=== PATIENT | male | born 1935 | race Caucasian/White ===

== ENCOUNTER → 2016-12-12 | Outpatient (CLI) | payer OTHER | LOC: BHFA 09:00 | PROVIDERS: ATTEND Internal Medicine Cardiovascular Disease | DX: I25.10 Atherosclerotic heart disease of native coronary artery without angina pectoris (principal); E78.5 Hyperlipidemia, unspecified | CPT/HCPCS: 78452; 93017; A9500 ==

== ENCOUNTER → 2017-10-22 | Outpatient (CLI) | payer OTHER | LOC: BHFA 10:00 | PROVIDERS: ATTEND Internal Medicine Cardiovascular Disease | DX: I35.9 Nonrheumatic aortic valve disorder, unspecified (principal); I25.10 Atherosclerotic heart disease of native coronary artery without angina pectoris; I10 Essential (primary) hypertension ==

== ENCOUNTER → 2018-09-17 | Outpatient (CLI) | payer OTHER | LOC: BHFA 10:15 | PROVIDERS: ATTEND Physician Assistant Medical | DX: I35.1 Nonrheumatic aortic (valve) insufficiency (principal); I25.10 Atherosclerotic heart disease of native coronary artery without angina pectoris; I10 Essential (primary) hypertension; E78.5 Hyperlipidemia, unspecified ==

== ENCOUNTER → 2018-10-07 | Outpatient (CLI) | payer OTHER | LOC: BHLMT 14:00 | PROVIDERS: ATTEND Internal Medicine Interventional Cardiology | DX: I35.1 Nonrheumatic aortic (valve) insufficiency (principal); I25.10 Atherosclerotic heart disease of native coronary artery without angina pectoris | CPT/HCPCS: 93306-PO ==

== ENCOUNTER 2019-02-12 13:29 | Inpatient (IN) | payer OTHER ==
[2019-02-12] MEDS ORDERED: HYDROCODONE/APAP 5/325 TAB PO ONE (15:19)
--- NOTE | 2019-02-12 16:06 | EDPHY ---
ED Progress Note Narrative: This patient was turned over to me at change of shift from Dr. Ro for left hip pain. Awaiting CT pelvis and left femur x-ray. 1600: Patient's left femur x-ray is unremarkable. 1615: I spoke with Dr. Frazier, radiologist, regarding patient's pelvic CT. The patient has a transverse fracture of the left superior/inferior rami. This fracture was not present on an old MRI. He will need to be admitted. I will also page the orthopedic surgeon. 1616: Reassessed patient and discussed imaging findings. I have also discussed plan for admission which he is comfortable with. 1619: I consulted with the hospitalist service, Dr. Villa accepts admission of this patient. 1628: I consulted with Dr. Willis, orthopedic surgeon. He agrees to consult on this patient during his admission.
[2019-02-12 17:15] LABS: PLATELET COUNT 228 10^3/uL (150-400)
--- NOTE | 2019-02-12 17:28 | EDPHY ---
H & P Time Seen by Provider: 02/12/19 13:35 HPI/ROS: CC: Fall, hip pain HPI: This is an 83-year-old male with history of prior left hip replacement who fell at a local dog park prior to arrival, primarily landing on his left hip and leg. He denies injury or pain to head, neck or chest. He had difficulty walking afterwards, complaining of pain in pelvis, so EMS was called who brought him to the hospital. He has been in his usual state of health. ROS: A comprehensive 10 point review of systems was reviewed and is normal. PMH: Left ISREAL. Not on anticoagulants. Social history: . Retired. PHYSICAL EXAM: General:Patient is alert, in no acute distress. ENT:Eyes are normal to inspection. ENT inspection normal. Neck: Normal inspection. Full range of motion. Respiratory:No respiratory distress. Breath sounds normal bilaterally. Cardiovascular: Regular rate and rhythm. Strong peripheral pulses. Normal cap refill. Abdomen:The abdomen is nontender to palpation. There are no peritoneal signs. There are normal bowel sounds. Back: Normal to inspection. No tenderness to palpation. Skin: Normal color. No rash. Warm and dry. Extremities: TTP is present over left hip. No obvious shortening or deformity. Neuro: Oriented x3. Normal motor function. Normal sensory function. Smoking Status: Never smoked Constitutional: Initial Vital Signs Heart Rate 84 02/12/19 13:32 Respiratory Rate 18 02/12/19 13:32 Blood Pressure 149/91 H 02/12/19 13:32 O2 Sat (%) 94 02/12/19 13:32 O2 Delivery Mode Room Air Allergies/Adverse Reactions: CHOCOLATE Allergy (Intermediate, Uncoded 10/18/10 08:47) RUNNY NOSE,WHEEZY Home Medications: Medication Instructions Recorded Herbals/Supplements -Info Only 1 ea PO DAILY 11/01/14 Latanoprost 1 drops EACHEYE HS 11/01/14 Omeprazole [Prilosec 20 mg] 20 mg PO BID 11/01/14 Tamsulosin HCl [Flomax 0.4 MG (*)] 0.4 mg PO DAILY@1800 11/01/14 Venlafaxine HCl [Venlafaxine HCl 150 mg PO HS 11/01/14 ER] traZODone [traZODONE 50MG (*)] 100 mg PO HS 11/01/14 Pravastatin Sodium 60 mg PO HS 02/12/19 MDM/Departure - MDM Imaging Results: Imaging Impressions Hip X-Ray 02/12/19 13:47 Impression: Nothing acute identified. Pelvis CT 02/12/19 14:59 Impression: 1. Probable nondisplaced fracture of the left superior pubic ramus/acetabulum, with an age-indeterminate, likely acute nondisplaced fracture of the left inferior pubic ramus. 2. Gas in the left sacrum, likely related to migration from adjacent degenerative change in the sacroiliac joint. 3. Additional findings as above. Findings discussed with Dr. Cristhian Vallejo on February 12, 2019 at 1614 hours. Knee X-Ray 02/12/19 15:00 Impression: Negative. Imaging: Discussed imaging studies w/ scallop binder Radiologist, I viewed and interpreted images myself Medications Given: Tamsulosin HCl (Flomax) 0.4 mg PO DAILY@1800 EMILE Stop: 08/11/19 17:59 Last Admin: 02/12/19 18:24 Dose: 0.4 mg Discontinued Medications Hydrocodone Bitart/Acetaminophen ([place] 5/325) 2 tab PO EDNOW ONE Stop: 02/12/19 15:20 Last Admin: 02/12/19 15:22 Dose: 2 tab Differential Diagnosis: Patient signed out to Dr. Vallejo at 1500 - please see his Progress Note of same date for additional documentation. - Depart Disposition: [facility] Inpatient Acute Clinical Impression: Fracture of pelvis Condition: Fair
[2019-02-12] MEDS ORDERED: HYDROmorphONE/DILAUDID 1 MG/ML INJ IVP PRN (17:36)
[2019-02-12] MEDS ORDERED: ONDANSETRON 4 MG/2 ML VIAL IVP PRN (17:36)
[2019-02-12] MEDS ORDERED: ONDANSETRON DISINTEGRATING 4 MG TAB PO PRN (17:36)
[2019-02-12 17:41] LABS: INR 1.09 (0.83-1.16); PROTIME(PATIENT) 13.7 SEC (12.0-15.0)
--- NOTE | 2019-02-12 17:47 | PDGENHP ---
History and Physical - Chief Complaint L Hip pain - History of Present Illness 83 y/o male w/ hx of HTN, CAD s/p stent placed to diagonal vessel, Carlin's esophagus s/p GERD, and depression presents w/ left hip pain, difficulty bearing weight to LLE after an acute mechanical fall today. He was standing at the dog park when a dog bumped into him from the back and knocked him over, landing on his left hip. He was concerned about his hardware since he had a left hip replaced in March 2018. Denies hitting head, no LOC. Imaging reveal traverse fracture of the left superior/inferior rami which was not present on an old MRI. He denies CP, nausea, palpitations, fever, chills, diarrhea or constipation. He is being admitted for treatment and monitoring. History Information - Allergies/Home Medication List Allergies/Adverse Reactions: CHOCOLATE Allergy (Intermediate, Uncoded 10/18/10 08:47) RUNNY NOSE,WHEEZY Home Medications: Herbals/Supplements -Info Only 1 ea PO DAILY 11/01/14 [Last Taken 02/11/19] Latanoprost 1 drops EACHEYE HS 11/01/14 [Last Taken 02/11/19] Omeprazole [Prilosec 20 mg] 20 mg PO BID 11/01/14 [Last Taken 02/12/19] Tamsulosin HCl [Flomax 0.4 MG (*)] 0.4 mg PO DAILY@1800 11/01/14 [Last Taken ] Venlafaxine HCl [Venlafaxine HCl ER] 150 mg PO HS 11/01/14 [Last Taken 02/11/19] traZODone [traZODONE 50MG (*)] 100 mg PO HS 11/01/14 [Last Taken 02/11/19] Pravastatin Sodium 60 mg PO HS 02/12/19 [Last Taken 02/11/19] I have personally reviewed and updated: family history, medical history, social history, surgical history - Past Medical History coronary artery disease (PCI to diagonal vessel in 2009, 3cm LAD muscle bridge, paroxysmal atrial tachycardia, paroxysmal atrial flutter, RBBB), GERD, hypertension, hyperlipidemia Additional medical history: Depression. Carlin's esophagus with GERD. BPH. Insomnia - Surgical History Additional surgical history: Left shoulder surgery. Hernia repair x4. Cataract repair. Left hip replacement (March 2018) - Family History Positive for: father with history of CAD younger than 55 ( at 49) Additional family history: M: cervical ca - Social History Smoking Status: Never smoked Alcohol Use: Rarely Drug Use: None Additional social history: Retired, single. Lives independently in [place]. Enjoys reading, blogging, taking walks w/his border collie, Johanne. Review of Systems Review of Systems: ROS: 10pt was reviewed & negative except for what was stated in HPI & below Physical Exam Physical Exam: Lab data and imaging were reviewed. Temp Pulse Resp BP Pulse Ox 36.9 C 67 18 174/105 H 94 02/12/19 17:16 02/12/19 17:16 02/12/19 17:16 02/12/19 17:16 02/12/19 17:16 Constitutional: uncomfortable (Pleasant, cooperative, uncomfortable w/mvt) Eyes: PERRL, anicteric sclera, EOMI Ears, Nose, Mouth, Throat: moist mucous membranes, hearing normal, ears appear normal, no oral mucosal ulcers Cardiovascular: regular rate and rhythym, no murmur, rub, or gallop, No edema Peripheral Pulses: 2+: dorsalis-pedis (R) (Radial 2+), dorsalis-pedis (L) ( Radial 2+) Respiratory: no respiratory distress, no rales or rhonchi, clear to auscultation Gastrointestinal: normoactive bowel sounds, soft, non-tender abdomen, no palpable masses Genitourinary: no bladder fullness, no bladder tenderness Skin: warm, normal color, no rashes or abrasions, no fluctuance, no induration, No mottled Musculoskeletal: pain with ROM (LLE, pain expressed on lateral side and groin w/ mvt. +DF/PF, able to wiggle toes. Reports numb sensation from mid-thigh down to knee from previous hip sx in 2018.) Neurologic: AAOx3, sensation intact bilaterally, CN II-XII Intact Psychiatric: interacting appropriately, not anxious, not encephalopathic, thought process linear Lymph, Heme, Immunologic: no cervical LAD, no supraclavicular LAD Lab Data & Imaging Review 02/12/19 13:40 02/12/19 13:40 WBC 6.68 10^3/uL (3.80-9.50) 02/12/19 13:40 RBC 4.71 10^6/uL (4.40-6.38) 02/12/19 13:40 Hgb 13.7 g/dL (13.7-17.5) 02/12/19 13:40 Hct 41.1 % (40.0-51.0) 02/12/19 13:40 MCV 87.3 fL (81.5-99.8) 02/12/19 13:40 MCH 29.1 pg (27.9-34.1) 02/12/19 13:40 MCHC 33.3 g/dL (32.4-36.7) 02/12/19 13:40 RDW 15.3 % (11.5-15.2) H 02/12/19 13:40 Plt Count 228 10^3/uL (150-400) 02/12/19 13:40 MPV 12.2 fL (8.7-11.7) H 02/12/19 13:40 Neut % (Auto) 52.5 % (39.3-74.2) 02/12/19 13:40 Lymph % (Auto) 34.1 % (15.0-45.0) 02/12/19 13:40 Angelina % (Auto) 10.6 % (4.5-13.0) 02/12/19 13:40 Eos % (Auto) 2.2 % (0.6-7.6) 02/12/19 13:40 Baso % (Auto) 0.3 % (0.3-1.7) 02/12/19 13:40 Nucleat RBC Rel Count 0.0 % (0.0-0.2) 02/12/19 13:40 Absolute Neuts (auto) 3.50 10^3/uL (1.70-6.50) 02/12/19 13:40 Absolute Lymphs (auto) 2.28 10^3/uL (1.00-3.00) 02/12/19 13:40 Absolute Monos (auto) 0.71 10^3/uL (0.30-0.80) 02/12/19 13:40 Absolute Eos (auto) 0.15 10^3/uL (0.03-0.40) 02/12/19 13:40 Absolute Basos (auto) 0.02 10^3/uL (0.02-0.10) 02/12/19 13:40 Absolute Nucleated RBC 0.00 10^3/uL (0-0.01) 02/12/19 13:40 Immature Gran % 0.3 % (0.0-1.1) 02/12/19 13:40 Immature Gran # 0.02 10^3/uL (0.00-0.10) 02/12/19 13:40 PT 13.7 SEC (12.0-15.0) 02/12/19 17:20 INR 1.09 (0.83-1.16) 02/12/19 17:20 Sodium 137 mEq/L (135-145) 02/12/19 13:40 Potassium 4.4 mEq/L (3.5-5.2) 02/12/19 13:40 Chloride 104 mEq/L (97-110) 02/12/19 13:40 Carbon Dioxide 20 mEq/l (22-31) L 02/12/19 13:40 Anion Gap 13 mEq/L (6-14) 02/12/19 13:40 BUN 28 mg/dL (7-23) H 02/12/19 13:40 Creatinine 1.2 mg/dL (0.7-1.3) 02/12/19 13:40 Estimated GFR 58 02/12/19 13:40 Glucose 97 mg/dL (70-100) 02/12/19 13:40 Calcium 9.4 mg/dL (8.5-10.4) 02/12/19 13:40 Total Bilirubin 0.6 mg/dL (0.1-1.4) 02/12/19 13:40 AST 29 IU/L (17-59) 02/12/19 13:40 ALT 22 IU/L (21-72) 02/12/19 13:40 Alkaline Phosphatase 74 IU/L (38-126) 02/12/19 13:40 Total Protein 7.1 g/dL (6.3-8.2) 02/12/19 13:40 Albumin 4.2 g/dL (3.5-5.0) 02/12/19 13:40 Assessment & Plan Plan: 83 y/o w/ extensive cardiac hx presents w/acute mechanical [place] [employer], subsequently resulting in traverse fracture of the left superior/inferior rami. No hardware damage from previous hip replacement. #Left superior/inferior rami fx -Ortho consult. Dr. Willis to evaluate pt and establish weight bearing status, NWB status until evaluated by ortho -Pain management PO/IVP PRN; received [place] PO in ED -PT/OT to evaluate and treat #CAD s/p stent placed in 2009: Recently evaluated by [facility] in October 2018. Echo w/ LVEF 60%, no regional wall motion abnormality. Mild thickening of the MVR. Moderate AVR present. Mild to moderate TVR. RVSP measured at 31 mmHg. Dilated ascending aorta measuring 4.0cm. -On ASA, pravastatin #Insomnia: on trazadone #Depression: on trazadone, venlafaxine Diet: Regular VTE ppx: Lovenox subq Code: Full Dispo: Admit to obs
[2019-02-12] MEDS: TAMSULOSIN HCL 0.4 MG CAP PO SCH (18:24)
[2019-02-12] MEDS: LATANOPROST 0.005% 2.5 ML OPHT DROPS EACHEYE SCH (21:14)
[2019-02-12] MEDS: traZODone 50 MG TAB PO SCH (21:14)
[2019-02-12] MEDS: PANTOPRAZOLE SODIUM 40 MG TAB PO SCH (21:14)
[2019-02-12] MEDS: VENLAFAXINE XR 150 MG CAP PO SCH (21:15)
[2019-02-12] MEDS: PRAVASTATIN SODIUM 40 MG TAB PO SCH (21:15)
[2019-02-12] MEDS: oxyCODONE IR 5 MG TAB PO PRN (21:21)
--- NOTE | 2019-02-12 23:55 | GCON ---
[f rep st] CONSULTATION ORTHOPEDIC CONSULTATION CHIEF COMPLAINT: Left hip pain, inability to weight bear. HISTORY OF PRESENT ILLNESS: 83-year-old male with a history of multiple medical problems. He was st anding at a dog park today when a dog bumped in from the back and knocked him over. He landed on his left hip. He had a hip replacement in March 2018 was and was hence very worried about his hardware. He denies head trauma or loss of consciousness. He was transported to the emergency department for f urther evaluation and imaging. He denies chest pain, shortness of breath, nausea, palpitations. PAST MEDICAL HISTORY: Includes hypertension, coronary artery disease with stent placement, Carlin's esophagus with GERD, depression, BPH, insomnia, hyperlipidemia. PAST SURGICAL HISTORY: Includes left shoulder, left hip replacement, hernia repair x4, cataract surg ada. MEDICATIONS: Medications were reviewed. ALLERGIES: He has no known drug allergies. REVIEW OF SYSTEMS: A 12-point review of systems negative except for HPI. PHYSICAL EXAMINATION: VITAL SIGNS: Stable. CONSTITUTIONAL: Awake, alert, and oriented x3. No acu te distress. CHEST: Easy, nonlabored breathing. MUSCULOSKELETAL: Left lower extremity is equal le ngth without deformity. Skin is intact. He has no pain with log roll use. Compartments are soft an d compressible. Sensation intact to light touch from L4-S1. He has palpable DP PT pulses. Motor in tact EHL, FHL, tibialis anterior, gastrocsoleus. ASSESSMENT AND PLAN: 83-year-old male with nondisplaced superior and inferior pubic rami fractures, status post total hip arthroplasty approximately 1 year ago. Recommend nonsurgical intervention, imm ediate mobilization with physical therapy, weightbearing as tolerated. Mechanical deep venous thromb osis prophylaxis. Follow up with Dr. Adams, his treating surgeon after he is discharged. Patient und erstands and agrees. Questions answered. /[id number]/MODL
[2019-02-13] MEDS: oxyCODONE IR 5 MG TAB PO PRN ×2 (04:26→08:25)
[2019-02-13 05:15] LABS: PLATELET COUNT 182 10^3/uL (150-400)
[2019-02-13] MEDS: ACETAMINOPHEN 325 MG TAB PO PRN ×2 (06:15→17:46)
--- NOTE | 2019-02-13 07:37 | SOAPPROG ---
CHIP Progress Note Assessment/Plan: Assessment: 83-year-old male nearly 1 year status post left total hip arthroplasty now with left-sided pubic rami fractures. Stable total hip Plan: Weightbear as tolerated with physical therapy Analgesics as needed Likely will only require mechanical DVT prophylaxis while in bed only, consider aspirin 81 mg twice daily x3 weeks if difficulty mobilizing Follow-up in 2 weeks with myself or his initial treating surgeon, Dr. Adams 02/13/19 07:34 Subjective: No acute events. Pain well controlled. Denies fevers chills nausea vomiting chest pain shortness of breath numbness or tingling. Objective: Vital Signs Temp Pulse Resp BP Pulse Ox 36.4 C 65 15 127/77 H 95 02/13/19 03:57 02/13/19 03:57 02/13/19 03:57 02/13/19 03:57 02/13/19 03:57 Laboratory Results 02/13/19 04:24 02/13/19 04:24 02/12/19 02/13/19 02/14/19 05:59 05:59 05:59 Intake Total 350 Output Total 400 Balance -50 PT 13.7 SEC (12.0-15.0) 02/12/19 17:20 INR 1.09 (0.83-1.16) 02/12/19 17:20 Awake alert and oriented Easy nonlabored breathing No pain with logroll of the left lower extremity Neurovascularly intact distally ICD10 Worksheet Patient Problems: Problems Problem Status Onset Fracture of pelvis Acute Aortic insufficiency Acute Coronary arteriosclerosis Acute Dehydration Acute Hypertension Acute Vertigo Acute
[2019-02-13] MEDS: ENOXAPARIN 40 MG/0.4 ML SYR SC SCH (08:24)
[2019-02-13] MEDS: PANTOPRAZOLE SODIUM 40 MG TAB PO SCH ×2 (08:25→20:35)
--- NOTE | 2019-02-13 10:26 | HOSPPROG ---
Hospitalist Progress Note Assessment/Plan: 83 y/o w/ extensive cardiac hx presents w/acute mechanical fall w/injury while at the dog park. He sustained a nondisplaced pubic rami fx. First encounter, chart reviewed. *Left superior/inferior pubic rami fx -appreciate Dr Willis -WBAT -to f/u with ortho *CAD -s/p stent placed in 2010 -echo in 2018 shows LVEF 60%, no regional wall motion abnormality. -On ASA, pravastatin *dilated ascending aorta at 4 cm -further monitor by cardiology *swallowing difficulty -hx of this and has worked w ST in the past, has specific exercises *Insomnia: on trazodone *Depression: venlafaxine -stable *DVT prophylaxis: LMWH *plan: bowel protocol, trial of tramadol for pain Subjective: Stanislaw has no c/o pain while resting, left hip area hurts w ambulation Objective: Vital Signs Temp Pulse Resp BP Pulse Ox 36.6 C 67 17 143/78 H 90 L 02/13/19 07:36 02/13/19 07:36 02/13/19 07:36 02/13/19 07:36 02/13/19 07:36 Laboratory Results 02/13/19 04:24 02/13/19 04:24 02/12/19 02/13/19 02/14/19 05:59 05:59 05:59 Intake Total 150 400 Output Total 400 100 Balance -250 300 PT 13.7 SEC (12.0-15.0) 02/12/19 17:20 INR 1.09 (0.83-1.16) 02/12/19 17:20 - Physical Exam Constitutional: no apparent distress, appears nourished Eyes: PERRL Ears, Nose, Mouth, Throat: hearing normal Cardiovascular: regular rate and rhythym, no murmur, rub, or gallop Respiratory: no respiratory distress Skin: warm Neurologic: AAOx3 Psychiatric: interacting appropriately ICD10 Worksheet Patient Problems: Problems Problem Status Onset Fracture of pelvis Acute Aortic insufficiency Acute Coronary arteriosclerosis Acute Dehydration Acute Hypertension Acute Vertigo Acute
--- NOTE | 2019-02-13 10:33 | PDMN ---
Medical Necessity Medical necessity: Change to IP, as of 02/12/19, per MD & MCG MG-MD Musculoskeletal Disease; los >2 mn for ongoing management of nondisplaced pubic ramus fx w/inability to bear weight s/p mechanical fall; requiring further monitoring, Ortho consult, pain management & therapies; comorbid advanced age & extensive cardiac hx
[2019-02-13] MEDS ORDERED: LACTULOSE 20 GM/30 ML UDCUP PO PRN (10:37)
[2019-02-13] MEDS ORDERED: traMADol 50 MG TAB PO PRN (10:37)
[2019-02-13] MEDS ORDERED: MAGNESIUM HYDROXIDE 30 ML UDCUP PO PRN (10:37)
[2019-02-13] MEDS ORDERED: BISACODYL 10 MG SUPP PR PRN (10:37)
[2019-02-13] MEDS: POLYETHYLENE GLYCOL 3350 17 GM PKT PO SCH (14:05)
--- NOTE | 2019-02-13 15:30 | ASMTCMCOM ---
CM Note CM Note Notes: Pt was admitted with a L pubic ramus fx after being knocked over at the [employer]. He lives alone in [place] and has a son Stanislaw who is his MDPOA [phone]. PT/OT are recommending SNF d/c. Spoke with pt who is reluctant to commit to SNF d/c but is agreeable to starting the process. He went to [facility] approx a year ago after a L ISREAL. [facility] We also discussed home care PT/OT and pt said he does not want to be homebound. CM will continue to follow for any d/c needs. D/C plan: [facility] vs home Date Signed: 02/13/2019 03:30 PM Electronically Signed By:CHLOE Gamble
[2019-02-13] MEDS: TAMSULOSIN HCL 0.4 MG CAP PO SCH (17:46)
[2019-02-13] MEDS: SENNOSIDES/DOCUSATE SODIUM TAB PO SCH (20:34)
[2019-02-13] MEDS: VENLAFAXINE XR 150 MG CAP PO SCH (20:35)
[2019-02-13] MEDS: traZODone 50 MG TAB PO SCH (20:36)
[2019-02-13] MEDS: PRAVASTATIN SODIUM 40 MG TAB PO SCH (20:38)
[2019-02-13] MEDS: LATANOPROST 0.005% 2.5 ML OPHT DROPS EACHEYE SCH (20:43)
[2019-02-14] MEDS: ENOXAPARIN 40 MG/0.4 ML SYR SC SCH (08:18)
[2019-02-14] MEDS: oxyCODONE IR 5 MG TAB PO PRN ×3 (08:18→17:32)
[2019-02-14] MEDS: PANTOPRAZOLE SODIUM 40 MG TAB PO SCH ×2 (08:19→20:05)
[2019-02-14] MEDS: POLYETHYLENE GLYCOL 3350 17 GM PKT PO SCH (08:59)
[2019-02-14] MEDS: SENNOSIDES/DOCUSATE SODIUM TAB PO SCH ×2 (08:59→20:04)
--- NOTE | 2019-02-14 15:28 | HOSPPROG ---
Hospitalist Progress Note Assessment/Plan: 83 y/o w/ extensive cardiac hx presents w/acute mechanical fall w/[place] dog [place]. He sustained a nondisplaced pubic rami fx. *Left superior/inferior pubic rami fx -appreciate Dr Willis -WBAT -to f/u with ortho *CAD -s/p stent placed in 2009 -echo in 2018 shows LVEF 60%, no regional wall motion abnormality. -On ASA, pravastatin *dilated ascending aorta at 4 cm -further monitor by cardiology *swallowing difficulty -hx of this and has worked w ST in the past, has specific exercises -doing well w this *Insomnia -trazodone *Depression -venlafaxine -stable *DVT prophylaxis: LMWH *plan: will go to rehab tomorrow if cont to be stable. Subjective: Stanislaw is feeling well, able to ambulate w use of walker to his chair. Objective: Vital Signs Temp Pulse Resp BP Pulse Ox 36.8 C 73 16 126/73 H 93 02/14/19 08:00 02/14/19 08:00 02/14/19 08:00 02/14/19 08:00 02/14/19 08:00 Laboratory Results 02/13/19 04:24 02/13/19 04:24 02/13/19 02/14/19 02/15/19 05:59 05:59 05:59 Intake Total 150 1150 Output Total 400 375 Balance -250 775 PT 13.7 SEC (12.0-15.0) 02/12/19 17:20 INR 1.09 (0.83-1.16) 02/12/19 17:20 - Physical Exam Constitutional: no apparent distress, appears nourished Eyes: PERRL Ears, Nose, Mouth, Throat: hearing normal Cardiovascular: regular rate and rhythym, no murmur, rub, or gallop Respiratory: no respiratory distress Skin: warm Musculoskeletal: generalized weakness Neurologic: AAOx3 Psychiatric: interacting appropriately ICD10 Worksheet Patient Problems: Problems Problem Status Onset Fracture of pelvis Acute Aortic insufficiency Acute Coronary arteriosclerosis Acute Dehydration Acute Hypertension Acute Vertigo Acute
[2019-02-14] MEDS: TAMSULOSIN HCL 0.4 MG CAP PO SCH (17:32)
[2019-02-14] MEDS: ACETAMINOPHEN 325 MG TAB PO PRN (20:00)
[2019-02-14] MEDS: PRAVASTATIN SODIUM 40 MG TAB PO SCH (20:01)
[2019-02-14] MEDS: VENLAFAXINE XR 150 MG CAP PO SCH (20:03)
[2019-02-14] MEDS: traZODone 50 MG TAB PO SCH (20:04)
[2019-02-14] MEDS: LATANOPROST 0.005% 2.5 ML OPHT DROPS EACHEYE SCH (22:19)
[2019-02-15] MEDS: ACETAMINOPHEN 325 MG TAB PO PRN (05:26)
[2019-02-15] MEDS: oxyCODONE IR 5 MG TAB PO PRN (05:44)
[2019-02-15] MEDS: POLYETHYLENE GLYCOL 3350 17 GM PKT PO SCH (08:14)
[2019-02-15] MEDS: PANTOPRAZOLE SODIUM 40 MG TAB PO SCH (08:14)
[2019-02-15] MEDS: SENNOSIDES/DOCUSATE SODIUM TAB PO SCH (08:14)
[2019-02-15] MEDS: ENOXAPARIN 40 MG/0.4 ML SYR SC SCH (08:14)
[2019-02-15 08:23] VITALS: BP 147/90
[2019-02-15] MEDS ORDERED: VENLAFAXINE XR 150 MG CAP PO SCH (09:00)
[2019-02-15] MEDS ORDERED: traMADol 50 MG TAB PO PRN (09:05)
--- NOTE | 2019-02-15 09:17 | PDIAF ---
- Diagnosis Diagnosis: pubic ramus fracture Code Status: Full Code - Medication Management Discharge Medications: electronically signed and located in the Home Medication List. PICC Care - Routine: N/A - Orders Services needed: Registered Nurse, Physical Therapy, Occupational Therapy Isolation Type: None Diet Recommendation: no restrictions on diet Activity/Weight Bearing Restrictions: WBAT to LLE with PT/assistance. No added hip precautions. B/L SCD's to lower extremities when not ambulating Additional Instructions: WBAT to LLE with PT/assistance No added hip precautions - Follow Up Care Current Providers and Referrals: Vinny Willis MD [Medical Doctor] - follow up in 2 weeks Darrell Martinez MD [Primary Care Provider] - As per Instructions
--- NOTE | 2019-02-15 13:09 | ASMTCMCOM ---
CM Note CM Note Notes: CM called [facility] to confirm they are able to accept patient. CM met with patient and daughter prior to discharge, daughter would like to transport patient to [facility] today. CM explained & delivered IM,placed signed copy of receipt in back of chart. CM available to support additional CM/Discharge needs. Date Signed: 02/15/2019 01:08 PM Electronically Signed By:Kayy Fam
[2019-02-15] MEDS ORDERED: ACETAMINOPHEN 500 MG TAB PO SCH (14:00)
--- NOTE | 2019-02-15 15:13 | ASDISCHSUM ---
Discharge Information Plan Status:SNF Medically Cleared to Leave: Discharge Date:02/15/2019 11:44 AM CM D/C Disposition:[facility] Facility ADT D/C Disposition:[facility] Facility Projected Discharge Date:02/15/2019 11:00 AM Transportation at D/C:Family Discharge Delay Reason: Follow-Up Date:02/15/2019 11:00 AM Discharge Slot: Final Diagnosis:Pubic Fracture Placement Information Referral Type:*Group Home/SNF Referral ID:[id number] Provider Name:[facility] Address 1:[address] Address 2: City:[place] Selection Factors: State:[place] Patient Contact Information Contact Name:SHAHEED Relationship:Son Address: Work Phone: City: [facility] Phone: State/Zip Code:[place] Email: Financial Information Financial Class:Medicare Primary Plan Desc:MEDICARE INPATIENT Primary Plan Number:[id number] Secondary Plan Desc: Secondary Plan Number:[id number] Assessment Information [facility] CM Progress Note CM Note CM Note Notes: Pt was admitted with a L pubic ramus fx after being knocked over at the [employer]. He lives alone in [place] and has a son Stanislaw who is his MDPOA [phone]. PT/OT are recommending SNF d/c. Spoke with pt who is reluctant to commit to SNF d/c but is agreeable to starting the process. He went to [facility] approx a year ago after a L ISREAL. Referral sent via [facility], [facility] accepted pending 3 midnight stay. We also discussed home care PT/OT and pt said he does not want to be homebound. CM will continue to follow for any d/c needs. D/C plan: [facility] home Date Signed: 02/13/2019 03:30 PM Electronically Signed By:CHLOE Gamble [facility] CM Progress Note CM Note CM Note Notes: CM called [facility] to confirm they are able to accept patient. CM met with patient and daughter prior to discharge, daughter would like to transport patient to [facility] today. CM explained & delivered IM,placed signed copy of receipt in back of chart. CM available to support additional CM/Discharge needs. Date Signed: 02/15/2019 01:08 PM Electronically Signed By:Kayy Fam Intervention Information Intervention Type:*IM-Signed Date of Service:02/15/2019 03:08 PM Patient Type:Inpatient Staff Member:Kayy Fam Hours: Discipline: Severity: Comment:CM explained IM, delivered, placed rec eipt copy in back of chart.
--- NOTE | 2019-02-16 02:04 | GDS ---
[f rep st] DISCHARGE SUMMARY DISCHARGE DIAGNOSES: 1. Left superior-inferior pubic rami fracture. 2. History of coronary artery disease, status post stent in 2009, stable. 3. 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 4. History of dysphagia. 5. Insomnia. 6. Depression. CONSULTANTS: Dr. Vinny Willis, Orthopedic Surgery. HISTORY: For details, please see the history and physical dated February 12, 2019. In brief, the patie nt is an 83-year-old male with a history of hypertension and coronary artery disease, who presented t o the emergency department with left hip pain after a mechanical fall while at the [facility]. He was found to have a pubic ramus fracture and was admitted to the hospital for further management. HOSPITAL COURSE: The patient admitted to the Medical/Surgical Unit. Orthopedic Surgery consult was obtained by Dr. Vinny Willis. No surgical intervention was recommended. It is advised he may be weig htbearing as tolerated to the left lower extremity with PT janitorial assistant. He was evaluated by our therap y services, who recommended senior care facility rehab to improve his mobility and strength. DISPOSITION: Patient is discharged to senior care facility in stable condition. FOLLOW UP: 1. Dr. Vinny Willis, Orthopedic Surgery, in [address] Darrell Martinez, Primary Care. DISCHARGE MEDICATIONS: Please see [facility] for completed outpatient medication list. Ksw medication s on discharge include: 1. Tylenol 1000 mg p.o. q.8 hours. 2. Senokot 2 tabs p.o. twice daily p.r.n. #30, no refills. 3. Tramadol 25 to 50 mg p.o. q.6 hours p.r.n. #30, no refills. 4. Of note, oxycodone is discontinued prior to discharge due to untoward side effects. 5. He will continue all other outpatient medications as previously prescribed. /[id number]/MODL
== END 2019-02-15 11:44 | DRG 536 ==
LOC: EDUNIT# → F3N 17:48 → OBSVTOIN 19:52
PROVIDERS: ADMIT Internal Medicine; ATTEND Internal Medicine
DX: S32.512A Fracture of superior rim of left pubis, initial encounter for closed fracture (principal); S32.592A Other specified fracture of left pubis, initial encounter for closed fracture; W54.1XXA Struck by dog, initial encounter; Y93.K1 Activity, walking an animal; Y92.838 Other recreation area as the place of occurrence of the external cause; Y99.8 Other external cause status; Z96.642 Presence of left artificial hip joint; I25.10 Atherosclerotic heart disease of native coronary artery without angina pectoris; Z95.5 Presence of coronary angioplasty implant and graft; I77.811 Abdominal aortic ectasia; I10 Essential (primary) hypertension; G47.00 Insomnia, unspecified; E78.5 Hyperlipidemia, unspecified; K22.70 Barrett's esophagus without dysplasia; K21.9 Gastro-esophageal reflux disease without esophagitis; N40.0 Benign prostatic hyperplasia without lower urinary tract symptoms; F32.9 Major depressive disorder, single episode, unspecified
CPT/HCPCS: 97110-GP; 97116-GP; 97161-GP; 97165-GO; 97530-GP; 97535-GO; J1650